=== PATIENT | female | born 1990 | race Caucasian/White ===

== ENCOUNTER 2017-02-26 23:02 | Day surgery (SDC) | payer OTHER ==
[2017-02-26 23:46] LABS: #Eosinphils 0.1 thou/uL (0.0-0.7); #Monocytes 1.1 thou/uL (0.11-0.59); #Neutrophils 9.3 thou/uL (1.40-6.50); %Basophils 0.1 % (0.0-1.0); %Eosinophils 0.7 % (0.0-10.0); %Lymphocytes 15.9 % (21.0-51.0); Mean Platelet Volume 8.4 fL (7.4-10.4); White Blood Cell (WBC) Count 12.5 thou/uL (4.8-10.8)
[2017-02-27 00:06] LABS: ALT (SGPT) 11 U/L (8-55); AST (SGOT) 13 U/L (5-34); Alkaline Phosphatase 93 U/L (40-150); Anion Gap 12 mmol/L (10-20); BUN (Urea Nitrogen) 11 mg/dL (7.0-18.7); Bilirubin, Total 0.3 mg/dL (0.2-1.2); Calc. Creatinine Clearance 0 mL/min (70-130); Calcium 9.3 mg/dL (7.8-10.44); Carbon Dioxide 20 mmol/L (22-29); Chloride 107 mmol/L (98-107); Estimated GFR-MDRD Greater than 90; Globulin 3.5 g/dL (2.4-3.5)
[2017-02-27 00:28] VITALS: BMI 29.2
[2017-02-27] MEDS ORDERED: Lactated Ringer's 1,000 ML IV SCH (01:30)
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
[2017-02-27 11:44] VITALS: BP 110/75; TEMP 98.2
== END 2017-02-27 14:55 | disposition home or self-care (01) ==
LOC: L&D/OP 23:02 → ERS 23:02 → EDSTATUS 23:45 → 3SE 02-27 11:25 → L&D/OP 02-27 14:55
PROVIDERS: ATTEND Student in an Organized Health Care Education/Training Program
DX: O99.89 Other specified diseases and conditions complicating pregnancy, childbirth and the puerperium (principal); R10.9 Unspecified abdominal pain; O99.343 Other mental disorders complicating pregnancy, third trimester; F32.9 Major depressive disorder, single episode, unspecified; R45.851 Suicidal ideations; W51.XXXA Accidental striking against or bumped into by another person, initial encounter; Z3A.38 38 weeks gestation of pregnancy; Z79.899 Other long term (current) drug therapy
CPT/HCPCS: 80053; 85025; 85384; 93005; 96360; 96361

== ENCOUNTER 2017-03-03 00:57 | Inpatient (IN) | payer OTHER ==
[2017-03-03 01:43] VITALS: BMI 29.3
[2017-03-03 02:02] LABS: Amnisure Test RUPTURE DETECTED (No Rupture)
[2017-03-03] MEDS ORDERED: Promethazine HCl 25 MG/ML VIAL IM PRN ×2 (02:42→04:45)
[2017-03-03] MEDS ORDERED: Acetaminophen 500 MG TAB PO PRN (02:42)
[2017-03-03] MEDS ORDERED: Ondansetron HCl/PF 4 MG/2 ML Vial IVP PRN ×3 (02:42→04:45)
[2017-03-03] MEDS ORDERED: Bicitra 30 ML UDCUP PO SCH (02:45)
[2017-03-03] MEDS ORDERED: CEFAZOLIN/Water 2 GM/20 ML SYRINGE SLOW IVP SCH (02:45)
[2017-03-03] MEDS: Lactated Ringer's 1,000 ML IV SCH ×3 (03:00→15:10)
[2017-03-03 03:26] LABS: Hematocrit 29.5 % (36.0-47.0); Mean Platelet Volume 8.9 fL (7.4-10.4); Red Blood Cell (RBC) Count 3.98 mill/uL (4.20-5.40); White Blood Cell (WBC) Count 13.8 thou/uL (4.8-10.8)
[2017-03-03] MEDS ORDERED: Morphine PF 1 MG/ML SYR ONE (04:28)
[2017-03-03] MEDS ORDERED: ePHEDrine/0.9% NaCl/PF SYRINGE 50 mg/10 ml ONE (04:29)
[2017-03-03] MEDS ORDERED: Oxytocin 10 UNITS/ML VIAL ONE ×2 (04:29→04:56)
[2017-03-03] MEDS ORDERED: Ondansetron HCl/PF 4 MG/2 ML Vial ONE (04:29)
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
[2017-03-03] MEDS ORDERED: Meperidine HCl/PF 25 MG/ML VIAL SLOW IVP PRN (04:45)
[2017-03-03] MEDS ORDERED: Communication Order-Pharmacy FS SCH (04:45)
[2017-03-03] MEDS ORDERED: Ketorolac Tromethamine 30 MG/ML VIAL IVP PRN (04:45)
[2017-03-03] MEDS ORDERED: Eucerin (Mineral Oil/Petrolatum,White) 30 gm Jar TOP PRN (04:45)
[2017-03-03] MEDS ORDERED: Naloxone HCl 0.4 mg/ml Vial IV PRN (04:45)
[2017-03-03] MEDS ORDERED: diphenhydrAMINE 50 MG/ML VIAL IVP PRN (04:45)
[2017-03-03] MEDS ORDERED: Naloxone HCl 0.4 mg/ml Vial IVP PRN ×2 (04:45)
[2017-03-03] MEDS ORDERED: Ketorolac Tromethamine 30 MG/ML VIAL IVP SCH (04:45)
[2017-03-03] MEDS ORDERED: Promethazine HCl 25 MG SUPP PR PRN (04:45)
[2017-03-03] MEDS ORDERED: HYDROmorphone 2 MG/ML VIAL SLOW IVP PRN (04:45)
--- NOTE | 2017-03-03 05:23 | PDOC.OPDEL ---
OB Operative/Delivery Note Delivery Dr/Surgeon: Luciano Assist: Gino Pre-Delivery Diagnosis: ruptured membrane Procedure/Post Delivery Dx: primary low transverse CS Weeks gestation: 38 Anesthesia: spinal - Findings A Sex: female Weight: 6 lb 9 oz - 1 min: 8 - 5 min: 9 - Additional Findings/Plan Placenta delivered: spontaneous findings: low transverse hysterotomy without extension, normal uterus, normal tubes, normal ovaries Estimated blood loss: 600 Post delivery plan: routine recovery
--- NOTE | 2017-03-03 05:52 | OP ---
DATE OF OPERATION: 03/03/2017 PREOPERATIVE DIAGNOSES: 1. Term rupture of membranes. 2. Still desires elective . POSTOPERATIVE DIAGNOSES: 1. Term rupture of membranes. 2. Still desires elective . PROCEDURE: Primary low transverse section via Pfannenstiel skin incision. ANESTHESIA: Spinal. ESTIMATED BLOOD LOSS: 600 mL. SURGEON: Natividad Wolf M.D. AUDIT SPEC: Dr. Kiran Christian URINE OUTPUT: 800 mL of clear urine. FINDINGS: Female in cephalic presentation, clear amniotic fluid, Apgars of 8 and 9, weighing 6 pounds 9 ounces. Normal uterus, ovaries and tubes. Hysterotomy without extension. COMPLICATIONS: None. DRAINS: Lee catheter. PATHOLOGY: None. OPERATIVE TECHNIQUE: The patient was taken to the operating room where spinal anesthesia was obtain ed without difficulty. The patient was prepped and draped in a sterile fashion in the dorsal supine position with a leftward tilt. After ensuring adequacy of anesthesia, a Pfannenstiel skin incision was made and carried down to the underlying subcutaneous tissue with a knife. The fascia was nicke d in the midline with a knife and carried laterally with the Mayos. The superior aspect of the fasc ia was tented with 2 Kochers and dissected off the rectus bluntly and the Mayos. Perforators were c auterized. Inferior aspect of the fascia was tented with 2 Kochers and dissected off the rectus as well. The rectus were bluntly divided in the midline and the peritoneum was bluntly entered into an d manually retracted. The Foreign O retractor was placed and the lower uterine segment was incised i n a transverse fashion and extended with the Yarbrough maneuver. The 's head was brought to the sterotomy and delivered with fundal pressure atraumatically. The cord was clamped, handed to awaiting wendy team. Cord blood was obtained and the placenta was allowed to spontaneously deliver. The uterus was exteriorized, cleared of all clots and debris and the hysterotomy was repaired with a #1 Monocryl in a running locking fashion with excellent hemostasis. The posterior cul-de-sac was lapped out. The uterus placed back into the abdomen. Again, hemostasis was noted. Irrigation of t he pelvis and pericolic gutters was performed, again noting hemostasis upon suctioning. The Foreign O retractor was removed. The rectus muscles were examined and noted to be hemostatic. The fascia w as reapproximated with an 0 PDS x1 suture with excellent reapproximation. The subcutaneous tissue w as irrigated and cauterized of any bleeders and reapproximated with a 2-0 plain gut in a running fas hion. The skin was closed with 4-0 Monocryl in a subcuticular fashion. Dermabond was applied as we ll as a pressure dressing. The patient tolerated the procedure well. Sponge, lap, needle counts co rrect x2. The patient was taken to recovery room in stable condition.
[2017-03-03] MEDS ORDERED: Simethicone Chewable 80 MG TAB PO PRN (08:00)
[2017-03-03] MEDS ORDERED: diphenhydrAMINE 25 MG CAP PO PRN (08:00)
[2017-03-03] MEDS ORDERED: Lanolin Ointment 7 GM TUBE TOP PRN (08:00)
[2017-03-03] MEDS ORDERED: Acetaminophen 325 MG TAB PO PRN (08:00)
[2017-03-03] MEDS ORDERED: Adacel (T-DAP) 0.5 ML VIAL IM ONE (08:00)
[2017-03-03] MEDS ORDERED: HYDROcodone/Acetaminophen 5/325 mg Tablet PO PRN (08:00)
[2017-03-03] MEDS ORDERED: Bisacodyl 10 MG SUPP PR PRN (08:00)
[2017-03-03] MEDS ORDERED: FLU VACC QS2017-18 36 mo. & older 0.5 ML SYRINGE IM ONE (09:00)
[2017-03-03] MEDS: Ibuprofen 800 MG TAB PO SCH ×2 (09:07→17:14)
[2017-03-03] MEDS: Docusate (Surfak) 240 MG CAP PO SCH (09:08)
[2017-03-03] MEDS: Prenatal Vitamin 1 TAB PO SCH (09:08)
[2017-03-03] MEDS: Ferrous Sulfate 325 MG TAB PO SCH (09:08)
[2017-03-04] MEDS: Docusate (Surfak) 240 MG CAP PO SCH ×2 (02:33→09:30)
[2017-03-04] MEDS: Ferrous Sulfate 325 MG TAB PO SCH ×2 (02:33→09:30)
[2017-03-04] MEDS: Ibuprofen 800 MG TAB PO SCH ×3 (02:34→14:11)
[2017-03-04 05:26] LABS: Hematocrit 27.1 % (36.0-47.0); Mean Platelet Volume 8.6 fL (7.4-10.4); Red Blood Cell (RBC) Count 3.53 mill/uL (4.20-5.40); White Blood Cell (WBC) Count 14.3 thou/uL (4.8-10.8)
[2017-03-04] MEDS: Prenatal Vitamin 1 TAB PO SCH (09:30)
[2017-03-04] MEDS: HYDROcodone/Acetaminophen 5/325 mg Tablet PO PRN (09:31)
--- NOTE | 2017-03-04 11:31 | PRG ---
DATE OF SERVICE: 03/04/2017 POSTOPERATIVE DAY #1 TIME OF EVALUATION: 0837 LOCATION: 3, [place] The patient is in room 331. SUBJECTIVE: In brief, this is a patient who underwent an elective primary due to history of \\\\"traumatic last delivery\\\\" and patient elected to have a at this time. For ful l details on that admission and surgical process, please turn to the operative report by Dr. Wolf dated 03/03/2017. I evaluated the patient on postoperative day #1 and no new issues identified. SUBJECTIVE: No new concerns identified. OBJECTIVE: On vital sign assessment, patient has temperature range of 98.3 to temperature max x1 of 99.0 on 03/03/2017, yesterday, at 2000. Blood pressure ranges from 113/55-118/58. Pulse is steady at 70s-80s. LABORATORY DATA: On laboratory assessment, she did have preoperative hematocrit value of 29 and pos toperative/ value of 27.1. On admission, she had a hepatitis B surface antigen and syphil is serology that were both negative. Per operative report and by physical exam, the patient's wound closure consisted of 4-0 Monocryl in a subcuticular fashion and Dermabond. No wound issues identif ied. ASSESSMENT: This is a patient who is postop day #1 status post elective primary who is ot herwise doing well. She had one temperature spike of 99.0, but still does not meet medical diagnosi s, afebrile morbidity (not greater than 100.4). PLAN: 1. Continue routine postop care. 2. Pain management per protocol. 3. Ambulation. 4. Regular diet. 5. Anticipate discharge either postop day #2 or postop day #3 as the patient has a past history of pain control issues.
[2017-03-04] MEDS: Lactated Ringer's 1,000 ML IV SCH (14:10)
[2017-03-05] MEDS: Ferrous Sulfate 325 MG TAB PO SCH ×3 (00:47→21:29)
[2017-03-05] MEDS: Ibuprofen 800 MG TAB PO SCH ×4 (00:47→21:29)
[2017-03-05] MEDS: HYDROcodone/Acetaminophen 5/325 mg Tablet PO PRN ×2 (00:49→06:23)
[2017-03-05] MEDS: Docusate (Surfak) 240 MG CAP PO SCH ×3 (01:02→21:29)
[2017-03-05] MEDS: Prenatal Vitamin 1 TAB PO SCH (09:23)
[2017-03-05] MEDS: Lactated Ringer's 1,000 ML IV SCH ×5 (09:23→23:52)
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
[2017-03-06] MEDS: Ibuprofen 800 MG TAB PO SCH ×2 (05:59→13:09)
[2017-03-06 08:06] VITALS: BP 116/67; TEMP 97.6
[2017-03-06] MEDS: Docusate (Surfak) 240 MG CAP PO SCH (08:20)
[2017-03-06] MEDS: Prenatal Vitamin 1 TAB PO SCH (08:20)
[2017-03-06] MEDS: Ferrous Sulfate 325 MG TAB PO SCH (08:21)
--- NOTE | 2017-03-06 09:09 | PDOC.PP ---
Post Progress Note Post Day #: 3 PO intake tolerated: yes Flatus: yes Ambulation: yes Vital Signs (12 hours) Temp Pulse Resp BP 03/06/17 08:00 97.6 F 76 16 116/67 03/06/17 07:55 97.6 F 76 16 Weight Weight 171 lb - Physical Examination General: NAD Cardiovascular: RRR Respiratory: non-labored breathing Abdominal: no distention, appropriately TTP Fundus firm & at: umb-2 Extremities: negative homans (B) Skin: CS incision dry & intact Neurological: no gross focal deficits Psychiatric: normal affect Result Diagrams: 03/04/17 05:08 Additional Labs: Post Labs Blood Type AB POSITIVE 03/03/17 03:05 Hep Bs Antigen Non-Reactive S/CO (NonReactive) 03/03/17 03:05 (1) S/P primary low transverse Code(s): Z98.891 - HISTORY OF UTERINE SCAR FROM PREVIOUS SURGERY Status: Acute - Assessment/Plan VSSAF Asx anemia acute on chronic, cont Fe supp on DC Met all milestones Rh pos RImm DC home fu 2 wk for inc check
[2017-03-06] MEDS: Lactated Ringer's 1,000 ML IV SCH (12:42)
== END 2017-03-06 13:55 | disposition home or self-care (01) | DRG 766 ==
LOC: L&D/OP 00:57 → L&D 02:54 → 3SW 07:40
PROVIDERS: ADMIT Student in an Organized Health Care Education/Training Program; ATTEND Student in an Organized Health Care Education/Training Program
PROC: 10D00Z1 Extraction of Products of Conception, Low, Open Approach (ICD-10-PCS; principal; 2017-03-03)
DX: O82 Encounter for cesarean delivery without indication (principal); Z37.0 Single live birth; Z3A.38 38 weeks gestation of pregnancy
CPT/HCPCS: 36415; 84112; 85027; 86780; 86850; 86900; 86901; 87340; J1885; J2274; J2405; J2590

== ENCOUNTER 2017-06-08 18:32 | Emergency (ER) | payer OTHER ==
[2017-06-08 19:51] LABS: #Basophils 0.1 thou/uL (0.0-0.2); #Eosinphils 0.2 thou/uL (0.0-0.7); #Lymphocytes 2.4 thou/uL (1.20-3.40); #Monocytes 0.7 thou/uL (0.11-0.59); #Neutrophils 4.6 thou/uL (1.40-6.50); %Basophils 0.9 % (0.0-1.0); %Eosinophils 2.6 % (0.0-10.0); %Lymphocytes 30.2 % (21.0-51.0); %Monocytes 9.2 % (0.0-10.0); %Neutrophils 57.1 % (42.0-75.0); Hemoglobin 12.8 g/dL (12.0-16.0); Mean Corpuscular Hemoglobin 25.8 pg (27.0-31.0); Mean Corpuscular Volume 80.8 fl (81.0-99.0); Mean Platelet Volume 8.3 fL (7.4-10.4); Platelet Count 315 thou/uL (130-400); RBC Distribution Width 14.9 % (11.5-14.5); Red Blood Cell (RBC) Count 4.96 mill/uL (4.20-5.40)
[2017-06-08 19:55] LABS: ALT (SGPT) 66 U/L (8-55); AST (SGOT) 35 U/L (5-34); Albumin 4.6 g/dL (3.5-5.0); Alkaline Phosphatase 66 U/L (40-150); Anion Gap 14 mmol/L (10-20); BUN (Urea Nitrogen) 7 mg/dL (7.0-18.7); Bilirubin, Total 0.2 mg/dL (0.2-1.2); Calc. Creatinine Clearance 0 mL/min (70-130); Calcium 9.2 mg/dL (7.8-10.44); Carbon Dioxide 23 mmol/L (22-29); Chloride 106 mmol/L (98-107); Estimated GFR-MDRD Greater than 90; Globulin 3.6 g/dL (2.4-3.5); Glucose 86 mg/dL (70-105); Potassium 4.1 mmol/L (3.5-5.1); Protein, Total 8.2 g/dL (6.0-8.3); Sodium 139 mmol/L (136-145)
--- NOTE | 2017-06-08 22:06 | ULT ---
LIMITED ABDOMINAL ULTRASOUND WITH ATTENTION TO THE RIGHT LOWER QUADRANT ANTERIOR ABDOMINAL WALL 06/08/17 HISTORY: 27-year-old female with a palpable finding at the site of a incision which is tender. There is an irregularly shaped area of hypoechogenicity in the region of the palpable finding which m easures approximately 0.5 x 0.5 x 1.6 cm. There does appear to be some blood flow within this area. T he possibilities include that of a poorly defined small fluid collection that could conceivably repre sent a postsurgical fluid collection. This could represent phlegmon or possibly even associated scar. This appears to be too small to be percutaneously drained. If there is clinical concern for this rep resenting an area of infection, possible aspiration with ultrasound guidance might be of benefit. IMPRESSION: Very irregularly shaped area of hypoechogenicity in the right lower quadrant abdominal wall palpable finding. Possibilities include that o a very poorly circumscribed postoperative fluid collection or p ossibly phlegmon. If there is clinical concern for this representing an area of infection, a followup ultrasound guided aspiration could be performed, although this is too small of an area to be percuta neously drained. POS: RASHAAD
== END 2017-06-08 22:39 | disposition home or self-care (01) ==
LOC: ERS 18:32
DX: G89.18 Other acute postprocedural pain (principal); R10.30 Lower abdominal pain, unspecified
CPT/HCPCS: 36415; 76705; 80053; 83690; 85025

== ENCOUNTER 2020-05-02 10:00 | Emergency (ER) | payer OTHER ==
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
[2020-05-02 11:37] LABS: BHCG - Serum Negative (NEGATIVE); Pregs Control Background? CLEAR/WHITE (CLR/WHITE); Pregs Control Bar Appear? YES (CONTROL BAR)
[2020-05-02 11:42] LABS: #Basophils 0.1 thou/uL (0.0-0.2); #Lymphocytes 1.9 thou/uL (1.20-3.40); #Monocytes 0.7 thou/uL (0.11-0.59); #Neutrophils 12.7 thou/uL (1.40-6.50); %Basophils 0.6 % (0.0-1.0); %Eosinophils 0.1 % (0.0-10.0); %Lymphocytes 12.3 % (21.0-51.0); %Monocytes 4.7 % (0.0-10.0); %Neutrophils 82.3 % (42.0-75.0); Hemoglobin 13.7 g/dL (12.0-16.0); Mean Corpuscular HGB CONC 33.8 g/dL (32.0-36.0); Mean Corpuscular Hemoglobin 29.5 pg (27.0-31.0); Mean Corpuscular Volume 87.2 fL (78.0-98.0); Mean Platelet Volume 8.2 fL (7.4-10.4); Platelet Count 302 thou/uL (130-400); Red Blood Cell (RBC) Count 4.64 mill/uL (4.20-5.40); White Blood Cell (WBC) Count 15.5 thou/uL (4.8-10.8)
[2020-05-02 12:00] LABS: ALT (SGPT) 25 U/L (8-55); AST (SGOT) 24 U/L (5-34); Albumin 4.5 g/dL (3.5-5.0); Alkaline Phosphatase 47 U/L (40-110); Anion Gap 17 mmol/L (10-20); BUN (Urea Nitrogen) 7 mg/dL (7.0-18.7); Bilirubin, Total 0.6 mg/dL (0.2-1.2); Calc. Creatinine Clearance 0 mL/min (70-130); Calcium 9.1 mg/dL (7.8-10.44); Carbon Dioxide 19 mmol/L (22-29); Chloride 105 mmol/L (98-107); Globulin 3.2 g/dL (2.4-3.5); Glucose 108 mg/dL (70-105); Potassium 3.8 mmol/L (3.5-5.1); Protein, Total 7.7 g/dL (6.0-8.3); Sodium 137 mmol/L (136-145)
[2020-05-02] MEDS ORDERED: Boostrix 0.5 ML (Tdap) VIAL ONE (13:02)
== END 2020-05-02 13:26 | disposition home or self-care (01) ==
LOC: ERS 10:00
DX: S00.12XA Contusion of left eyelid and periocular area, initial encounter (principal); S00.512A Abrasion of oral cavity, initial encounter; Y04.8XXA Assault by other bodily force, initial encounter
CPT/HCPCS: 36415; 70450; 70486; 72125; 80053; 84703; 85025; 90471; 90715; 96372

== ENCOUNTER 2021-01-10 19:16 | Emergency (ER) | payer OTHER, SELFPAY ==
[2021-01-10] MEDS ORDERED: Boostrix 0.5 ML (Tdap) VIAL ONE (19:37)
== END 2021-01-10 20:35 | disposition home or self-care (01) ==
LOC: ERS 19:16
DX: O9A.211 Injury, poisoning and certain other consequences of external causes complicating pregnancy, first trimester (principal); S91.311A Laceration without foreign body, right foot, initial encounter; Z3A.01 Less than 8 weeks gestation of pregnancy; W25.XXXA Contact with sharp glass, initial encounter
CPT/HCPCS: 90471; 90715